=== PATIENT | male | born 1950 | race Caucasian/White ===

== ENCOUNTER 2024-12-25 12:10 | Outpatient (AMB) | payer MEDICARE, MEDICAID, SELFPAY ==
--- OUTSIDE RECORDS SUMMARY | 2016-02-12 10:09 | XMS_ITS | Continuity of Care Document ---
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 Name Role Phone Matthew KRAFT Constantin Unavailable Unavailable Allergies, Adverse Reactions, Alerts Substance Reaction Status Criticality No Known Allergies Active No Inform ation Medications Medication Instructions Dosage Effective Dates (start - stop) Status Comments metformin ER 500 mg tablet,extended release 24 hr take 2 tablet by oral route every day with the evening meal 1000 MG - Active timolol maleate 0.25 % eye drops instill 1 drop by ophthalmic route into each eye BID;strength needing clarification - Active gabapentin 300 mg capsule take 1 capsule by oral route 3 times every day 300 MG - Active glyburide 5 mg tablet take 1 Tablet by o ral route 2 times every day give with meals - Active simvastatin 20 mg tablet take 1 tablet by oral route every day in the evening 20 MG - Active Proscar 5 mg tablet take 1 tablet by ora l route every day 5 MG - Active Januvia 100 mg tablet take 1 tablet by o ral route every day 100 MG - Active fenofibrate micronized 134 mg capsule severe risk with simvastatin. Will need to discuss with pt. Takes 1 capsule by oral route every day with food - Active lisinopril 5 mg tablet take 1 tablet by oral route every day 5 MG - Active Advance Directives Directive Yes / No Effective Date File Name No Information Encounters Encounter Description Practice Location Reason(s) For Visit Diagnoses Date Provider [facility], [address] [address], [place], [place], [id number], [place] tel:[phone] [place] [address] No Information Matthew Killian. [address] [place] [address], [place], [place], [id number], [place]. tel:[phone] [facility], [address] [place] [address], [place], [place], [id number], [place] tel:[phone] [place] [facility] for general adult medical exam w/o abnormal findingsEncounter for screening for respiratory tuberculosisType 2 diabetes mellitus without complications No Information Family History Family Member Type Diagnosis Age At Onset No Information Payers Payer name Insurance type Covered green party ID Authoriza tion(s) No Information Social History Type Description Quantity Date Captured Comments Sex Male Smoking Status No Information Chief Complaint And Reason For Visit No Information History Of Present Illness Encounter Date Complaint History Of Prese nt Illness No Information Instructions Date Instruction Additional Infor mation No Information Assessments Type Assessment Date No Information
[2024-12-25 13:10] VITALS: BMI 21.5
--- NOTE | 2024-12-25 13:10 | MHC.AMNUTRGE ---
VS Expanded 12/25/24 13:10 01/01/25 19:17 Height 5 ft 8 in 5 ft 8 in Weight 141 lb 5.061 oz 141 lb BMI 21.5 21.4 Intake Visit Reasons: fatty liver Nutrition Presentation Details: Pt presents for MNT for T2DM Pt presents with son during this appt Pt has Alzheimer, son reports Pt forgets to eat during the day and the largest meal is typically in the afternoon thus Pt is losing weight. Son reports , P is not monitoring BG, Pt refuses. Pt is Lantus 16 units/day Today will discuss nutrient dense foods with protein : cold/finger foods Pt may be able to get during the day to prevent further weight loss PXY-Yhzafjg-Cz.Jeor Equation Height: 5 ft 8 in Weight: 141 lb Resting Metabolic Rate: 1354.43 Calculated Activity Level: Mild Activity Calories Needed to Maintain Weight: 1862.34 Diagnosis Nutrition problem #1: food nutri know defi As related to (etiology) #1: diagnosis As evidenced by (sign/symptom) #1: knowledge deficit of diet [facility] Medical History (Updated 01/01/25 @ 19:[address], LDN) Alzheimer's dementia Assessment & Plan Assessment & Plan (1) T2DM (type 2 diabetes mellitus): Comment: Pt with alzheimers Code(s): E11.9 - Type 2 diabetes mellitus without complications Category: Medical Plan: current wt: 64 kg (12/27 ) est kcal needs as per MSJ: 1064-3180 est protein needs as per 1 -1.2g/kg BW: 60-72 est fluid needs as per 30 ml/kg BW: 2000 Recommended fiber > 12 g /day and gradually increase up to 25-28 g /day or as tolerated Nutrition topics discussed : Reviewed (R), Pt verbalized understanding (V) , not applicable (N/A) R, : Healthy Plate Method Concept: R, : Carbohydrates: food sources of carbohydrates, relationship of carbohydrates to blood glucose, fatty liver GI health. Recommended total amount of carbohydrates per meals and snack. Differences between simple carbohydrates and complex carbohydrates R, : Lean protein foods including vegan , vegetarian sources of protein. Benefits of protein (including but not limited to healing, nutritional value , benefits in weight loss, glucose control R, V, N/A: Fats : Source of fats, benefits of fats. Difference between saturated and unsaturated fats. Saturated fats and its contribution to inflammation R, V, N/A: Fiber: food sources and role of fiber in the diet (including but not limited to its role as a prebiotic, benefits in constipation, role in IBS , role in glucose control and cholesterol level) R, V, N/A: Hydration: role of hydration and prevention of dehydration or over hydration. Foods and water content. R, V, N/A: Vitamins and Minerals in foods and supplements R, V, N/A: Interpreting food labels, including serving size, macronutrients, vitamins, minerals, allergens, ingredient list , % daily value Patient Instructions: See options for sandwiches (whole grain bread and variety of protein salad :tuna/egg/chicken) Have fairlife milk with the meals or as snack Coding Level of Care Code Nutr Indiv Intake (04547) Diagnoses T2DM (type 2 diabetes mellitus) E11.9 Time Spent (min) 30
--- OUTSIDE RECORDS SUMMARY | 2024-12-25 15:05 | XMS_ITS | Clinical Summary ---
Author Organization [facility] Address [address] [place] [address] Phone Care Team Providers Care Dental Laboratory Technician Name Role Phone Keeley Gutiérrez MD Primary Care Provider [phone] Allergies No known active allergies Medications flash glucose sensor (FreeStyle Félix 2 Sensor) kitIndications :Type 2 diabetes mellitus with diabetic chronic kidney disease ([facility] V24, [facility] V28) Box = Kit = EA, change sensor every 14 days 6 each 1 07/13/19 25 Active flash glucose scanning reader (FreeStyle Félix 2 [place]) miscIndication s:Type 2 diabetes mellitus with diabetic chronic kidney disease ([facility] V24, [facility] V28) Check sugars regularly 1 each 07/13/19 25 Active pen needle, diabetic (Lite Touch Insulin Pen [place]) 31 gauge x 5/16 needleIndicati ons:Type 2 diabetes mellitus with diabetic chronic kidney disease ([facility] V24, [facility] V28) USE 1TIMES DAILY TO INJECT INSULIN 200 each 1 07/13/19 25 Active insulin glargine (Lantus Solostar U-100 Insulin) 100 unit/mL (3 mL) injection penIndications :Type 2 diabetes mellitus with diabetic chronic kidney disease ([facility] V24, [facility] V28) INJECT 15 UNITS INTO THE SKIN DAILY. 15 mL 1 11/02/19 25 Active tamsulosin (FLOMAX) 0.4 mg 24 hr capsule Take 1 capsule (0.4 mg total) by mouth 1 (one) time each day. Capsules should be taken 30 minutes following the same meal each day. 90 each 11/22/19 25 025 Active levothyroxine (SYNTHROID, LEVOTHROID) 100 mcg tablet TOME 1 TABLETA POR VIA ORAL [place] 90 tablet 1 12/07/19 25 Active levothyroxine (SYNTHROID, LEVOTHROID) 100 mcg tablet TAKE 1 TABLET BY MOUTH 1 TIME EACH DAY. 90 tablet 09/14/19 25 025 Discontinued lactulose (CHRONULAC) solution Take 15 mL (10 g total) by mouth 2 (two) times a day. 900 mL 11/02/19 25 025 dulaglutide (TRULICITY) 0.75 mg/0.5 mL pen injector injectionIndic ations:Type 2 diabetes mellitus with diabetic nephropathy, with long-term current use of insulin ([facility] V24, [facility] V28) Inject 0.5 mL (0.75 mg total) under the skin every 7 (seven) days. 2 mL 11/02/19 25 025 empagliflozin (Jardiance) 10 mg tablet Take 1 tablet (10 mg total) by mouth 1 (one) time each day in the morning. 30 tablet 11/02/19 25 025 Active Problems Problem Noted Date Diagnosed Date Pneumonia of both lower lobes due to infectious organism 11/01/2024 AMS (altered mental status) 10/31/2024 Alzheimer's dementia ([facility] V24, [facility] V28) 06/12/2024 Assessment & Plan (06/12/2024 8:43 AM EDT): Patient was referred to neurology however has not followed up, son reports that patient lost insurance for a while as result they were not able to schedule the appointment, I gave a printout of the referral with information for the office to contact to make an appointment with the patient. Patient and son verbalized understanding. I have also signed forms for patient to initiate adult foster care so he can get additional help at home with his ADLs. Type 2 diabetes mellitus wit h diabetic nephropathy ([facility] V24, [facility] V28) 01/20/2022 Assessment & Plan (06/12/2024 8:43 AM EDT): Patient taking empagliflozin 10 mg, not taking Trulicity or insulin as patient refuses insulin only able to give him medications which are oral pills. Check hemoglobin A1c and further adjustment based off blood work results. Orders: Hemoglobin A1c; Future Vitamin D deficiency 03/18/2021 CKD (chronic kidney disease) stage 3, GFR 30-59 ml/min ([facility] V24, [facility] V28) 04/22/2020 Diabetic retinopathy ([facility] V24, [facility] V28) 04/22/2020 Microalbuminuria 04/22/2020 Elevated liver enzymes 11/17/2018 Hypothyroidism 06/21/2018 Assessment & Plan (06/12/2024 8:43 AM EDT): Continue with levothyroxine at the current dose, recheck TSH Orders: Thyroid stimulating hormone with reflex to free t4 and free t3; Future DM (diabetes mellitus), type 2 with renal complications [place] [place], [facility] V28) 10/25/2017 HTN (hypertension), benign 07/11/2017 Overview (04/06/2024): Last Assessment & Plan: Blood pressure well controlled. Continue his ANN inhibitor at current dose Assessment & Plan (06/12/2024 8:43 AM EDT): Continue with lisinopril 10 mg. Orders: Comprehensive metabolic panel; Future CBC and differential; Future BPH (benign prostatic hyperplasia) 06/06/2014 Overview (04/06/2024): Nodular- Richard [place] Glaucoma 06/06/2014 Hyperlipidemia with target LDL less than 100 08/2014 Overview (04/06/2024): Mildly elevated liver enzymes. Being monitored closely. Assessment & Plan (06/12/2024 8:43 AM EDT): Continue with rosuvastatin 20 mg, recheck lipid panel. Orders: Lipid panel with reflex to direct LDL; Future Hypertriglyceridemia 06/06/2014 Overview (04/06/2024): Trigs as high as 1391 06/2019 Encounters Date Type Department Care Team Description 11/21/2024 9:00 AM EDT Office Visit Adult Medicine [address] [phone] Keeley Gutiérrez MD Hospital discharge follow-up (Primary Dx); HTN (hypertension), benign; Hyperlipidemia with target LDL less than 100; Acquired hypothyroidism; Type 2 diabetes mellitus with diabetic nephropathy, with long-term current use of insulin ([facility] [place], [facility] V28); Stage 3a chronic kidney disease ([facility] [place], [facility] V28); Benign prostatic hyperplasia with post-void dribbling; Alzheimer's dementia, unspecified dementia severity, unspecified timing of dementia onset, unspecified whether behavioral, psychotic, or mood disturbance or anxiety ([facility] [place], [facility] V28) 11/16/2024 9:30 AM EDT Office Visit Endocrinology [address] [phone] Juliet Royal MD Type 2 diabetes mellitus with other specified complication, with long-term current use of insulin ([facility] [place], [facility] V28) (Primary Dx) 11/06/2024 Telephone Adult Medicine [address] [phone] Keeley Gutiérrez MD 11/05/2024 Telephone Adult [address] [phone] Daljit Benavides DIRECTOR OF BUSINESS CONTINUITY 10/31/2024 12:13 PM EDT - 11/01/2024 3:02 PM EDT Hospital Encounter [facility] [address] [place] [phone] Estevan Garza MD Sondhi, Vikram, MD Santoyo-Pache co, Omar D, MD Pneumonia of both lower lobes due to infectious organism (Primary Dx); Type 2 diabetes mellitus with diabetic chronic kidney disease ([facility] [place], [facility] V28); Type 2 diabetes mellitus with diabetic nephropathy, with long-term current use of insulin ([facility] V24, [facility] V28); Delirium; Hyperammonemia ([facility] V24) Discharge Disposition: Home-Health Care [facility] 10/30/[address] [phone] Juliet Royal MD from Last 3 Months Immunizations Name Administration Dates Next Due Influenza trivalent, 0.5mL ( Fluad) 65yo and older 01/28/2022,01/11/2020,01/29/2019,01/25,12/08/2016 Influenza trivalent, 0.5mL, preservative free (Fluarix; FluLaval; Fluzone) ages 6mo and older (Afluria) 3 years and older 01/06/2016,01/08/2015 Influenza, Unspecified 01/20/2021 Moderna SARS-CoV-2 COVID-19, mRNA, LNP-S, preservative free 05/28/2020,05/05/2020 Pfizer SARS-CoV-2 COVID-19, mRNA, LNP-S, preservative free 07/28/2021 Pneumococcal conjugate 13 va lent (Prevnar 13, PCV13) 2mo and older 05/19/2015 Pneumococcal polysaccharide 23 valent (Pneumovax 23) 2yo and older 10/25/2017 Surgical History Surgery Date Site/Laterality Comments TONSILLECTOMY PROCEDURE: HISTORICAL TONSILLECTOMY OTHER SURGICAL HISTORY PROCEDURE: HISTORICAL UNSPECIFIED SURGERY; COMMENT: prlems with urination as a child-repaired CATARACT EXTRACTION 2016, 2017 PROCEDURE: HISTORICAL CATARACT REMOVAL Medical History Medical History Date Comments Type 2 DM mild nonproliferat janice retinopathy, no macular edema, uncontr 06/06/2014 DX:Type 2 DM mi ld nonproliferative retinopathy, no macular edema, uncontr Hypertension DX:Hypertension Diabetic retinopathy ([facility] V24, [facility] V28) 04/22/2020 DX:Diabetic retinopathy ([facility] ) Microalbuminuria 04/22/2020 DX:Microalbumin uria CKD (chronic kidney disease) stage 3, GFR 30-59 ml/min ([facility] V24, [facility] V28) 04/22/2020 DX:CKD (chronic kidney disea se) stage 3, GFR 30-59 ml/min ([facility]) Family History Medical History Relation Name Comments Other: Other Father Other: Other Mother Relation Name Status Comments Father Mother Social History Tobacco Use Types Packs/Day Years Used Date Smoking Tobacco: Former Cigarettes Q uit: 04/04/2019 Smokeless Tobacco: Never Tobacco Cessation:Counseling Given: Not Answered Alcohol Use Standard Drinks/Week Comments Not Currently 0 (1 standard drink = 0.6 oz pur e alcohol) Interpersonal Safety Answer Date Record ed Physical Abuse 10/31/2024 Verbal Abuse 10/31/2024 Sex and Gender Information Value Date Recorded Sex Assigned at Not on file Legal Sex Male 5:31 AM EST Gender Identity Not on file Sexual Orientation Not on file Obstetrics History Last Filed Vital Signs Vital Sign Reading Time Taken Comments Blood Pressure 104/58 11/21/2024 9:23 AM EDT Pulse 72 11/21/2024 9:23 AM EDT Temperature 36.4 C (97.5 F) 11/21/2024 9:23 AM EDT Respiratory Rate 14 11/21/2024 9:23 AM EDT Oxygen Saturation 97% 11/21/2024 9:23 AM EDT Inhaled Oxygen Concentration - - Weight 59 kg (130 lb) 11/21/2024 9:23 AM EDT Height 172.7 cm (5' 8 ) 11/21/2024 9:23 AM EDT Body Mass Index 19.77 11/21/2024 9:23 AM EDT Plan of Treatment Upcoming Encounters Date Type Department Care Team (Late st Contact Info) Description 03/15/2025 2:30 PM EST Office Visit Adult Medicine [address] [phone] Keeley Gutiérrez MD [address] [place] [address] Health Maintenance Due Date Last Done Comments Diabetes: Annual Foot Exam 09/12/1960 Diabetes: Annual Retina Eye Exam 09/12/1960 DTaP,Tdap,and Td Vaccines (1 - Tdap) 1968 Zoster Vaccines (1 of 2) 1968 Colorectal Cancer Screening: Colonoscopy 03/13/2022 Social Influencers of Health Screening 03/13/2022 Diabetes: Annual Urine Albumin-Creatinine Ratio (uACR) 12/31/2023 12/30/2022 RSV Immunization Adult Patients (1 - 1-dose 75+ series) 2024 COVID-19 Vaccine ( season) 2024 07/28/2021, 01/20/2021, 05/28/2020, Additional history exists Influenza Vaccine (#1) 2024 , 01/20/2021, 01/20/2021, Additional history exists Diabetes: Blood Sugar Control Test (HGBA1C) 05/03/2025 10/31/2024, 06/12/2024, 05/24/2023 Medicare Annual Wellness Visit 06/12/2025 06/12/2024 Diabetes: Annual GFR (Glomerular Filtration Rate) 11/01/2025 11/01/2024, 10/31/2024, 06/12/2024, Additional history exists Falls Risk Assessment 11/01/2025 11/01/2024 , 06/12/2024, 06/12/2024 Hypertension/CHF/CAD Annual BMP Blood Test 11/01/2025 11/01/2024, 10/31/2024, 06/12/2024, Additional history exists Cholesterol Screening (Lipid Panel) 11/01/2029 11/01/2024, 06/12/2024, 05/24/2023 Abdominal Aortic Aneurysm (AAA) Screen Completed 05/27/2015 Hepatitis C Screening Completed 08/30/2015 Pneumococcal Vaccine: 50+ Years Completed 10/25/2017, 05/19/2015 Depression Screening Completed 06/12/2024 HIB Vaccines Aged Out No longer eligi ble based on patient's age to complete this topic HPV Vaccines Aged Out No longer eligi ble based on patient's age to complete this topic Hepatitis A Vaccines Aged Out No long er eligible based on patient's age to complete this topic Hepatitis B Vaccines Aged Out No long er eligible based on patient's age to complete this topic IPV Vaccines Aged Out No longer eligi ble based on patient's age to complete this topic MMR Vaccines Aged Out No longer eligi ble based on patient's age to complete this topic Meningococcal ACWY Vaccine Aged Out N o longer eligible based on patient's age to complete this topic Meningococcal B Vaccine Aged Out No l onger eligible based on patient's age to complete this topic RSV Immunization Patients Under 20 months Aged Out No longer eligible based on patient's age to complete this topic Varicella Vaccines Aged Out No longer eligible based on patient's age to complete this topic Procedures Procedure Name Priority Date/Time Associated Diagnosis Comments POCT GLUCOSE BLOOD Routine 11/01/2024 11 :09 AM EDT POCT GLUCOSE BLOOD Routine 11/01/2024 7: 52 AM EDT LIPID PANEL WITH REFLEX TO DIRECT LDL Routine 11/01/2024 5:45 AM EDT COMPLETE BLOOD COUNT Routine 11/01/2024 5:45 AM EDT BASIC METABOLIC PANEL Routine 11/01/2024 5:45 AM EDT ECG ANNOTATED 11/01/2024 POCT GLUCOSE BLOOD Routine 10/31/2024 8: 19 PM EDT RESPIRATORY VIRUS PANEL MOLECULAR STUDY STAT 10/31/2024 5:47 PM EDT POCT GLUCOSE BLOOD Routine 10/31/2024 5: 44 PM EDT POCT GLUCOSE BLOOD Routine 10/31/2024 3: [address] HEAD WO CONTRAST STAT 10/31/2024 2 :30 PM EDT OTOOLE URINE CULTURE TUBE STAT 11/01/19 2:24 PM EDT URINALYSIS WITH REFLEX MICROSCOPIC AND CULTURE STAT 10/31/2024 2:24 PM EDT URINALYSIS WITH REFLEX MICROSCOPIC AND CULTURE STAT 10/31/2024 2:24 PM EDT XR CHEST 2 VIEWS STAT 10/31/2024 1:41 PM EDT RHYTHM ECG, REPORT Routine 10/31/2024 1: 01 PM EDT ECG 12-LEAD STAT 10/31/2024 12:54 PM EDT HEMOGLOBIN A1C Add-On 10/31/2024 12:34 PM EDT CBC WITH AUTO DIFFERENTIAL STAT 10/31/2024 12:34 PM EDT BETA HYDROXYBUTYRATE STAT 10/31/2024 12:34 PM EDT OSMOLALITY STAT 10/31/2024 12:34 PM EDT MAGNESIUM STAT 10/31/2024 12:34 PM EDT AMMONIA STAT 10/31/2024 12:34 PM EDT COMPREHENSIVE METABOLIC PANEL STAT 10/31/2024 12:34 PM EDT CBC AND DIFFERENTIAL STAT 10/31/2024 12:34 PM EDT VENOUS BLOOD GAS STAT 10/31/2024 12:2 0 PM EDT HM URINE ALBUMIN CREATININE RATIO Routine 12/30/2022 HM HEPATITIS C SCREENING Routine 08/30/2015 ABDOMINAL AORTIC ANEURYSM SCRREN Routine 05/27/2015 from Last 3 Months or Most Recently Relevant to Health Maintenance Results * (ABNORMAL) POCT Glucose, blood (11/01/2024 11:09 AM EDT) Only the most recent of5 resultswithin the time period is included. [facility] Glucose POCT 329(H) 70 - 100 mg/dL 11/01/2024 11:12 AM EDT [facility] Blood Capillary blood specimen / Unknown 11/01/2024 11:09 AM EDT 11/01/2024 11:13 AM EDT Fabiano Ellis MD LAB POINT OF C ARE TEST DOCKED DEVICE UNSOLICITED RESULTS Final Result Performing Organization Address [facility]/ZIP Co de Phone Number [facility] [address] [place] [address], [place] [phone] * (ABNORMAL) Lipid panel with reflex to direct LDL (11/01/2024 5:45 AM EDT) Cholesterol 181 0 - 200 mg/dL LAB CHEMISTRY METHOD 11/01/2024 7:31 AM EDT [facility] Triglycerides 165(H) 0 - 150 mg/dL LAB CHEMISTRY METHOD 11/01/2024 7:31 AM EDT [facility] HDL 35(L) >=40 mg/dL LAB CHEMISTRY METHOD 11/01/2024 7:31 AM EDT [facility] LDL Calculated 113(H) 0 - 100 mg/dL LAB CHEMISTRY METHOD 11/01/2024 7:31 AM EDT [facility] VLDL Cholesterol Tuan 33 mg/dL LAB CHEMISTRY METHOD 11/01/2024 7:31 AM T [facility] Non HDL Chol. (LDL+VLDL) 146(H) <145 mg/dL LAB CHEMISTRY METHOD 11/01/2024 7:31 AM EDT [facility] Chol/HDL Ratio 5.2(H) 0.0 - 4.4 LAB CHEMISTRY METHOD 11/01/2024 7:31 AM EDT [facility] Blood Venous blood specimen / Unknown Venipuncture / Unknown 11/01/2024 5:45 AM EDT 11/01/2024 6:18 AM EDT us Jannet Martin NP LAB BLOOD ORDERABLES Fin al Result [facility] [address] [place] [address], * (ABNORMAL) Complete blood count (11/01/2024 5:45 AM EDT) [facility] Signature WBC 5.3 4.8 - 10.8 K/mcL LAB HEMETOLOGY METHOD 11/01/2024 6:36 AM EDT [facility] RBC 3.80(L) 4.50 - 5.50 M/mcL LAB HEMETOLOGY METHOD 11/01/2024 6:36 AM EDT [facility] Hemoglobin 10.5(L) 13.5 - 17.5 g/dL LAB HEMETOLOGY METHOD 11/01/2024 6:36 AM EDT [facility] Hematocrit 31.4(L) 42.0 - 54.0 % LAB HEMETOLOGY METHOD 11/01/2024 6:36 AM EDT [facility] MCV 82.8 79.0 - 98.0 FL LAB HEMETOLOGY METHOD 11/01/2024 6:36 AM EDT [facility] MCH 27.7 27.0 - 32.0 pcg LAB HEMETOLOGY METHOD 11/01/2024 6:36 AM EDT [facility] MCHC 33.4 32.0 - 37.0 g/dL LAB HEMETOLOGY METHOD 11/01/2024 6:36 AM EDT [facility] RDW 13.1 11.0 - 15.0 % LAB HEMETOLOGY METHOD 11/01/2024 6:36 AM EDT [facility] Platelets 162 130 - 400 K/mcL LAB HEMETOLOGY METHOD 11/01/2024 6:36 AM EDT [facility] MPV 11.7(H) 7.0 - 11.0 FL LAB HEMETOLOGY METHOD 11/01/2024 6:36 AM EDT [facility] NRBC 0.0 <1.0 % LAB HEMETOLOGY METHOD 11/01/2024 6:36 AM T [facility] NRBC Absolute 0.00 <0.10 K/mcL LAB HEMETOLOGY METHOD 11/01/2024 6:36 AM [facility] Blood Venous blood specimen / Unknown Venipuncture / Unknown 11/01/2024 5:45 AM EDT 11/01/2024 6:19 AM EDT us Pierre Mendenhall MD LAB BLOOD ORDERABLES Final Resu lt [facility] [address] [place] [address], * (ABNORMAL) Basic metabolic panel (11/01/2024 5:45 AM EDT) Sodium 142 133 - 145 mmol/L LAB CHEMISTRY METHOD 11/01/2024 7:31 AM [facility] Potassium 4.2 3.5 - 5.5 mmol/L LAB CHEMISTRY METHOD 11/01/2024 7:31 AM [facility] Chloride 110 96 - 110 mmol/L LAB CHEMISTRY METHOD 11/01/2024 7:31 AM [facility] CO2 29 21 - 32 mmol/L LAB CHEMISTRY METHOD 11/01/2024 7:31 AM [facility] Anion Gap 3 3 - 11 LAB CHEMISTRY METHOD 11/01/2024 7:31 AM [facility] Glucose 258(H) 70 - 100 mg/dL LAB CHEMISTRY METHOD 11/01/2024 7:31 AM [facility] BUN 27(H) 5 - 25 mg/dL LAB CHEMISTRY METHOD 11/01/2024 7:31 AM [facility] Creatinine 0.98 0.70 - 1.30 mg/dL LAB CHEMISTRY METHOD 11/01/2024 7:31 AM EDT [facility] eGFR 80 >=60 mL/min/1. 73m2 LAB CHEMISTRY METHOD 11/01/2024 7:31 AM EDT [facility] Comment:Calculation based on the Chronic Kidney Disease Epidemiology Collaboration (CKD-EPI) equation refit without adjustment for race. BUN/Creatinine Ratio 27.6 LAB CHEMISTRY METHOD 11/01/2024 7:31 AM EDT [facility] Calcium 9.0 8.5 - 10.5 mg/dL LAB CHEMISTRY METHOD 11/01/2024 7:31 AM EDT [facility] Blood Venous blood specimen / Unknown Venipuncture / Unknown 11/01/2024 5:45 AM EDT 11/01/2024 6:18 AM EDT Pierre Mendenhall MD LAB BLOOD ORDERABLES Final Resu lt [facility] [address] [place] [address], [place] [phone] * ECG-Annotated (11/01/2024) us Provider Onbase ECG ORDERABLES Final Result * Respiratory virus panel molecular study (10/31/2024 5:47 PM EDT) Adenovirus Detection by PCR Not Detected Not Detected LAB MICROBIOLOGY METHOD 10/31/2024 7:25 PM EDT [facility] Influenza A PCR Not Detected Not Detected LAB MICROBIOLOGY METHOD 10/31/2024 7:25 PM EDT [facility] Influenza B PCR Not Detected Not Detected LAB MICROBIOLOGY METHOD 10/31/2024 7:25 PM EDT [facility] Coronavirus 229E Not Detected Not Detected LAB MICROBIOLOGY METHOD 10/31/2024 7:25 PM EDT [facility] Coronavirus HKU1 Not Detected Not Detected LAB MICROBIOLOGY METHOD 10/31/2024 7:25 PM EDT [facility] Coronavirus OC43 Not Detected Not Detected LAB MICROBIOLOGY METHOD 10/31/2024 7:25 PM EDT [facility] Coronavirus NL63 Not Detected Not Detected LAB MICROBIOLOGY METHOD 10/31/2024 7:25 PM EDT [facility] Parainfluenza Virus 1 Not Detected Not Detected LAB MICROBIOLOGY METHOD 10/31/2024 7:25 PM EDT [facility] Parainfluenza Virus 2 Not Detected Not Detected LAB MICROBIOLOGY METHOD 10/31/2024 7:25 PM EDT [facility] Parainfluenza Virus 3 Not Detected Not Detected LAB MICROBIOLOGY METHOD 10/31/2024 7:25 PM EDT [facility] Parainfluenza Virus 4 Not Detected Not Detected LAB MICROBIOLOGY METHOD 10/31/2024 7:25 PM EDT [facility] RSV PCR Not Detected Not Detected LAB MICROBIOLOGY METHOD 10/31/2024 7:25 PM EDT [facility] Human Metapneumovirus A and B Not Detected Not Detected LAB MICROBIOLOGY METHOD 10/31/2024 7:25 PM EDT [facility] Rhinovirus/Entero virus Not Detected Not Detected LAB MICROBIOLOGY METHOD 10/31/2024 7:25 PM EDT [facility] Bordetella pertussis Not Detected Not Detected LAB MICROBIOLOGY METHOD 10/31/2024 7:25 PM EDT [facility] Bordetella parapertussis Not Detected Not Detected LAB MICROBIOLOGY METHOD 10/31/2024 7:25 PM EDT [facility] Mycoplasma pneumo by PCR Not Detected Not Detected LAB MICROBIOLOGY METHOD 10/31/2024 7:25 PM EDT [facility] Chlamydia pneumoniae Not Detected Not Detected LAB MICROBIOLOGY METHOD 10/31/2024 7:25 PM EDT [facility] SARS COV-2 Not Detected Not Detected LAB MICROBIOLOGY METHOD 10/31/2024 7:25 PM EDT [facility] Swab Both anterior nares / Unknown Non-blood Collection / Unknown 10/31/2024 5:47 PM EDT 10/31/2024 6:17 PM EDT Narrative [facility] - 10/31/2024 7:25 PM EDT Testing was performed using the [employer] Respiratory Pathogen PCR Assay. All results must be correlated with the clinical findings. Results should not be used as the sole basis for diagnosis. False Negative results may occur from the presence of sequence variants in the region targeted by the assay or the presence of inhibitors. Results may be affected by concurrent antiviral/antimicrobial therapy or levels of organisms that are below the limit of detection. us Jannet Martin NP LAB MICROBIOLOGY - GENER AL ORDERABLES Final Result [facility] [address] [place] [address], * CT Head wo Contrast (10/31/2024 2:30 PM EDT) Anatomical Region Laterality Modality Head and Neck Computed Tomogra phy 10/31/2024 2:48 PM EDT Impressions 10/31/2024 2:49 PM EDT NO ACUTE INTRACRANIAL ABNORMALITY. -------- FINAL REPORT -------- Dictated By: Aung James Dictated Date: 10/31/2024 14:48 ET Assigned Physician: Aung James Reviewed and Electronically Signed By: Aung James Signed Date: 10/31/2024 14:49 ET Workstation ID: [id number] Transcribed By: Self Edit Transcribed Date: 10/31/2024 14:48 ET Narrative 10/31/2024 2:49 PM EDT PROCEDURE: HEAD CT INDICATION: Delirium TECHNIQUE: CT of the head without intravenous contrast. Multiplanar reformats. The examination was performed utilizing dose reduction techniques. Total DLP 809 COMPARISON: 04/27/2024 FINDINGS: No acute territorial infarct, mass effect, or intracranial hemorrhage. Moderate scattered periventricular and subcortical white matter hypodensities are most likely related to chronic small vessel ischemic change. CSF spaces commensurate for degree of volume loss. No hydrocephalus. Visualized paranasal sinuses are clear. Mastoid air cells are clear. No calvarial fracture. Bilateral lens implants. Procedure Note Aung James MD - 10/31/2024 PROCEDURE: HEAD CT INDICATION: Delirium TECHNIQUE: CT of the head without intravenous contrast. Multiplanarreformats. The examination was performed utilizing dose reductiontechniques. Total DLP 809 COMPARISON: 04/27/2024 FINDINGS: No acute territorial infarct, mass effect, or intracranial hemorrhage. Moderate scattered periventricular and subcortical white matterhypodensities are most likely related to chronic small vessel ischemicchange. CSF spaces commensurate for degree of volume loss. No hydrocephalus. Visualized paranasal sinuses are clear. Mastoid air cells are clear. No calvarial fracture. Bilateral lens implants. IMPRESSION: NO ACUTE INTRACRANIAL ABNORMALITY. -------- FINAL REPORT -------- Dictated By: Aung James Dictated Date: 10/31/2024 14:48 ET Assigned Physician: Aung James Reviewed and Electronically Signed By: Aung James Signed Date: 10/31/2024 14:49 ET Workstation ID: [id number] Transcribed By: Self Edit Transcribed Date: 10/31/2024 14:48 ET Estevan Garza MD [facility] [place] PROCEDURES Final Result * (ABNORMAL) Urinalysis with reflex microscopic and culture (10/31/2024 2:24 PM EDT) Specific [place] Urine 1.026 1.003 - 1.030 LAB URINALYSIS - AUTOMATED METHOD 10/31/2024 2:38 PM EDT [facility] pH, Urine 6.0 5.0 - 8.0 pH LAB URINALYSIS - AUTOMATED METHOD 10/31/2024 2:38 PM EDT [facility] Leukocytes, Urine Negative Negative LAB URINALYSIS - AUTOMATED METHOD 10/31/2024 2:38 PM EDT [facility] Nitrite, Urine Negative Negative LAB URINALYSIS - AUTOMATED METHOD 10/31/2024 2:38 PM [facility] Protein, Urine 100(A) <=Trace mg/dL LAB URINALYSIS - AUTOMATED METHOD 10/31/2024 2:38 PM [facility] Glucose, Urine >=1000(A) Negative mg/dL LAB URINALYSIS - AUTOMATED METHOD 10/31/2024 2:38 PM [facility] Ketones, Urine Negative Negative mg/dL LAB URINALYSIS - AUTOMATED METHOD 10/31/2024 2:38 PM [facility] Urobilinogen , Urine 1.0 0.2 - 1.0 mg/dL LAB URINALYSIS - AUTOMATED METHOD 10/31/2024 2:38 PM [facility] Bilirubin, Urine Negative Negative LAB URINALYSIS - AUTOMATED METHOD 10/31/2024 2:38 PM [facility] Blood, Urine Negative Negative LAB URINALYSIS - AUTOMATED METHOD 10/31/2024 2:38 PM [facility] RBC, Urine 1.1 0 - 4 /HPF LAB URINALYSIS - AUTOMATED METHOD 10/31/2024 2:38 PM [facility] WBC, Urine 0.4 0 - 4 /HPF LAB URINALYSIS - AUTOMATED METHOD 10/31/2024 2:38 PM [facility] Squamous Epithelial, Urine 5 0 - 60 /LPF LAB URINALYSIS - AUTOMATED METHOD 10/31/2024 2:38 PM [facility] Bacteria, Urine Negative Negative /HPF LAB URINALYSIS - AUTOMATED METHOD 10/31/2024 2:38 PM [facility] Hyaline Casts, Urine 0.0 0 - 3 /LPF LAB URINALYSIS - AUTOMATED METHOD 10/31/2024 2:38 PM [facility] Urine Urine specimen obtained by clean catch procedure / Unknown Non-blood Collection / Unknown 10/31/2024 2:24 PM EDT 10/31/2024 2:31 PM EDT us Estevan Garza MD LAB URINE ORDERABLES Final Res ult Performing Organization Address [facility] Co de Phone Number [facility] [address] [place] [address], [place] [phone] * [place] urine culture tube (10/31/2024 2:24 PM EDT) Extra Tube Hold for add-ons. 10/31/2024 4:01 PM EDT [facility] Comment:Auto resulted. Urine Urine specimen obtained by clean catch procedure / Unknown Non-blood Collection / Unknown 10/31/2024 2:24 PM EDT 10/31/2024 2:31 PM EDT Estevan Garza MD LAB URINE ORDERABLES Final Res ult Performing Organization Address [facility] de Phone Number [facility] [address] [place] [address], [place] [phone] * XR Chest 2 Views (10/31/2024 1:41 PM EDT) Anatomical Region Laterality Modality Body Radiographic Michelle ging 10/31/2024 2:24 PM EDT Impressions 10/31/2024 2:25 PM EDT FINDINGS/IMPRESSION: Diffuse coarse reticular markings throughout the lungs suggesting multifocal infectious/inflammatory process. Prominent vascular congestion could also have this appearance. Normal heart size. No significant pleural effusion. -------- FINAL REPORT -------- Dictated By: Aung James Dictated Date: 10/31/2024 14:24 ET Assigned Physician: Aung James Reviewed and Electronically Signed By: Aung James Signed Date: 10/31/2024 14:25 ET Workstation ID: [id number] Transcribed By: Self Edit Transcribed Date: 10/31/2024 14:24 ET Narrative 10/31/2024 2:25 PM EDT XR CHEST 2 VIEWS INDICATION: Delirium TECHNIQUE: XR CHEST 2 VIEWS COMPARISON: No priors available. Procedure Note Aung James MD - 10/31/2024 XR CHEST 2 VIEWS INDICATION: Delirium TECHNIQUE: XR CHEST 2 VIEWS COMPARISON: No priors available. IMPRESSION: FINDINGS/IMPRESSION: Diffuse coarse reticular markings throughout thelungs suggesting multifocal infectious/inflammatory process. Prominentvascular congestion could also have this appearance. Normal heart size.No significant pleural effusion. -------- FINAL REPORT -------- Dictated By: Aung James Dictated Date: 10/31/2024 14:24 ET Assigned Physician: Aung James Reviewed and Electronically Signed By: Aung James Signed Date: 10/31/2024 14:25 ET Workstation ID: [id number] Transcribed By: Self Edit Transcribed Date: 10/31/2024 14:24 ET us Estvean Garza MD IMG XR PROCEDURES Final Result * (ABNORMAL) RHYTHM ECG, REPORT (10/31/2024 1:01 PM EDT) Estevan Neri MD - 10/31/2024 1:01 PM EDT Estevan Garza MD 11/03/2024 12:48 AM ECG Rhythm Interpretation and Report Date/Time: 10/31/2024 1:01 PM Performed by: Estevan Garza MD Authorized by: Estevan Garza MD ECG interpreted by ED Physician in the absence of a hand baseball sewer: yes Previous ECG: Previous ECG: Compared to current Similarity: No change Comparison ECG info: April 2024 Interpretation: Interpretation: abnormal Details: Normal sinus rhythm with a ventricular rate of 66 bpm. Normal RI, QRS, QTc. Left axis deviation. No acute ischemic changes. us Estevan Garza MD ECG ORDERABLES Final Result * ECG 12 lead (10/31/2024 12:54 PM EDT) Ventricular Rate ECG 66 BPM GEMUSE Atrial Rate 66 BPM GEMUSE P-R Interval 192 ms GEMUSE QRS Duration 110 ms GEMUSE Q-T Interval 396 ms GEMUSE QTc 415 ms GEMUSE P Wave [place] 47 degrees GEMUSE R [place] -55 degrees GEMUSE T [place] 67 degrees GEMUSE ECG Interpretation Normal sinus rhythm Left anterior fascicular block When compared with ECG of 27-APR-2024 03:28, No significant change was found Confirmed by MISHA GARRIDO ([id number]) on 10/31/2024 10:18:01 PM GEMUSE 10/31/2024 12:5 4 PM EDT 10/31/2024 10:18 PM EDT Estevan Garza MD ECG ORDERABLES Final Result Performing Organization Address [facility]/ZIP Co de Phone Number GEMUSE * Beta hydroxybutyrate (10/31/2024 12:34 PM EDT) [facility] Beta-Hydroxybu tyrate 1.5 0.2 - 2.8 mg/dL LAB CHEMISTRY METHOD 10/31/2024 1:09 PM EDT [facility] Blood Venous blood specimen / Unknown Venipuncture / Unknown 10/31/2024 12:34 PM EDT 10/31/2024 12:35 PM EDT us Estevan Garza MD LAB BLOOD ORDERABLES Final Res ult Performing Organization Address City/[facility]/ZIP Co de Phone Number [facility] [address] [place] [address], [place] [phone] * (ABNORMAL) CBC auto differential (10/31/2024 12:34 PM EDT) [facility] WBC 5.0 4.8 - 10.8 K/mcL LAB HEMETOLOGY METHOD 10/31/2024 12:43 PM EDT [facility] RBC 4.20(L) 4.50 - 5.50 M/mcL LAB HEMETOLOGY METHOD 10/31/2024 12:43 PM EDT [facility] Hemoglobin 11.6(L) 13.5 - 17.5 g/dL LAB HEMETOLOGY METHOD 10/31/2024 12:43 PM EDT [facility] Hematocrit 33.8(L) 42.0 - 54.0 % LAB HEMETOLOGY METHOD 10/31/2024 12:43 PM EDT [facility] MCV 81.3 79.0 - 98.0 FL LAB [facility]OLOGY [facility]24 [facility] MCH 27.9 27.0 - 32.0 pcg LAB HEMETOLOGY METHOD 10/31[facility]2024 12:[facility] MCHC 34.3 32.0 - 37.0 g/dL LAB HEMETOLOGY METHOD 10/31/2024 12:43 PM [facility] RDW 13.2 11.0 - 15.0 % LAB HEMETOLOGY METHOD 10/31/2024 12:43 PM [facility] Platelets 183 130 - 400 K/mcL LAB HEMETOLOGY METHOD 10/31/2024 12:43 PM [facility] MPV 11.3(H) 7.0 - 11.0 FL LAB HEMETOLOGY METHOD 10/31/2024 12:[facility] NRBC 0.0 <1.0 % LAB HEMETOLOGY METHOD 10/31/2024 12:43 PM [facility] NRBC Absolute 0.00 <0.10 K/mcL LAB HEMETOLOGY METHOD 10/31/2024 12:43 PM [facility] Neutrophils Relative 60.6 % LAB HEMETOLOGY METHOD 10/31/2024 12:43 [facility] Lymphocytes Relative 27.4 % LAB HEMETOLOGY METHOD 10/31/2024 12:43 PM [facility] Monocytes Relative 9.4 % LAB HEMETOLOGY METHOD 10/31/2024 12:43 PM [facility] Eosinophils Relative 1.4 % LAB HEMETOLOGY METHOD 10/31/2024 12:43 PM EDT [facility] Basophils Relative 0.8 % LAB HEMETOLOGY METHOD 10/31/2024 12:43 PM EDT [facility] Immature Granulocytes Relative 0.4 % LAB HEMETOLOGY METHOD 10/31/2024 12:43 PM EDT [facility] Neutrophils Absolute 3.03 1.50 - 7.00 K/mcL LAB HEMETOLOGY METHOD 10/31/2024 12:43 PM EDT [facility] Lymphocytes Absolute 1.37 1.00 - 5.00 K/mcL LAB HEMETOLOGY METHOD 10/31/2024 12:43 PM EDT [facility] Monocytes Absolute 0.47 0.20 - 1.00 K/mcL LAB HEMETOLOGY METHOD 10/31/2024 12:43 PM EDT [facility] Eosinophils Absolute 0.07 0.00 - 0.50 K/mcL LAB HEMETOLOGY METHOD 10/31/2024 12:43 PM EDT [facility] Basophils Absolute 0.04 0.00 - 0.20 K/mcL LAB HEMETOLOGY METHOD 10/31/2024 12:43 PM EDT [facility] Immature Granulocytes Absolute 0.02 0.00 - 0.03 K/mcL LAB HEMETOLOGY METHOD 10/31/2024 12:43 PM EDT [facility] Blood Venous blood specimen / Unknown Venipuncture / Unknown 10/31/2024 12:34 PM EDT 10/31/2024 12:39 PM EDT us Estevan Garza MD LAB BLOOD ORDERABLES Final Res ult [facility] [address] [place] [address], * (ABNORMAL) Osmolality (10/31/2024 12:34 PM EDT) Osmolality Nelli 317(H) 280 - 300 mOsm/kg LAB CHEMISTRY METHOD 10/31/2024 1:40 PM EDT [facility] Blood Venous blood specimen / Unknown Venipuncture / Unknown 10/31/2024 12:34 PM EDT 10/31/2024 12:35 PM EDT Estevan Garza MD LAB BLOOD ORDERABLES Final Res ult Performing Organization Address City/[facility]/ZIP Co de Phone Number [facility] [address] [place] [address], [place] [phone] * Magnesium (10/31/2024 12:34 PM EDT) [facility] Magnesium 1.9 1.9 - 2.6 mg/dL LAB CHEMISTRY METHOD 10/31/2024 1:09 PM EDT [facility] Blood Venous blood specimen / Unknown Venipuncture / Unknown 10/31/2024 12:34 PM EDT 10/31/2024 12:35 PM EDT Estevan Garza MD LAB BLOOD ORDERABLES Final Res ult Performing Organization Address [facility] Co de Phone Number [facility] [address] [place] [address], [place] [phone] * (ABNORMAL) Hemoglobin A1c (10/31/2024 12:34 PM EDT) [facility] Hemoglobin A1C 11.4(H) <6.5 % LAB CHEMISTRY METHOD 10/31/2024 8:39 PM EDT [facility] Mean Bld Glu Estim. 280 mg/dL LAB CHEMISTRY METHOD 10/31/2024 8:39 PM EDT [facility] Blood Venous blood specimen / Unknown Venipuncture / Unknown 10/31/2024 12:34 PM EDT 10/31/2024 12:39 PM EDT us Jannet Martin NP LAB BLOOD ORDERABLES Fin al Result Performing Organization Address City/[facility]/ZIP Co de Phone Number [facility] [address] [place] [address], [place] [phone] * (ABNORMAL) Ammonia (10/31/2024 12:34 PM EDT) Ammonia 43(H) 11 - 35 mcmol/L LAB CHEMISTRY METHOD 10/31/2024 1:00 PM EDT [facility] Blood Venous blood specimen / Unknown Venipuncture / Unknown 10/31/2024 12:34 PM EDT 10/31/2024 12:39 PM EDT Estevan Garza MD LAB BLOOD ORDERABLES Final Res ult Performing Organization Address [facility]/ZIP Co de Phone Number [facility] [address] [place] [address], [place] [phone] * (ABNORMAL) Comprehensive metabolic panel (10/31/2024 12:34 PM EDT) Pathologist [facility] Sodium 137 133 - 145 mmol/L LAB CHEMISTRY METHOD 10/31/2024 1:30 PM EDT [facility] Potassium 4.1 3.5 - 5.5 mmol/L LAB CHEMISTRY METHOD 10/31/2024 1:30 PM EDT [facility] Chloride 106 96 - 110 mmol/L LAB CHEMISTRY METHOD 10/31/2024 1:30 PM EDT [facility] CO2 26 21 - 32 mmol/L LAB CHEMISTRY METHOD 10/31/2024 1:30 PM EDT [facility] Anion Gap 5 3 - 11 LAB CHEMISTRY METHOD 10/31/2024 1:30 PM EDT [facility] Glucose 429(HH) 70 - 100 mg/dL LAB CHEMISTRY METHOD 10/31/2024 1:30 PM EDT [facility] BUN 35(H) 5 - 25 mg/dL LAB CHEMISTRY METHOD 10/31/2024 1:30 PM [facility] Creatinine 1.23 0.70 - 1.30 mg/dL LAB CHEMISTRY METHOD 10/31/2024 1:30 PM [facility] eGFR 61 >=60 mL/min/1. 73m2 LAB CHEMISTRY METHOD 10/31/2024 1:30 PM [facility] Comment:Calculation based on the Chronic Kidney Disease Epidemiology Collaboration (CKD-EPI) equation refit without adjustment for race. BUN/Creatinine Ratio 28.5 LAB CHEMISTRY METHOD 10/31/2024 1:30 PM [facility] Calcium 8.8 8.5 - 10.5 mg/dL LAB CHEMISTRY METHOD 10/31/2024 1:30 PM [facility] AST (SGOT) 5(L) 10 - 42 unit/L LAB CHEMISTRY METHOD 10/31/2024 1:30 PM [facility] ALT (SGPT) 15 10 - 60 unit/L LAB CHEMISTRY METHOD 10/31/2024 1:30 PM [facility] Alkaline Phosphatase 67 42 - 121 unit/L LAB CHEMISTRY METHOD 10/31/2024 1:30 PM [facility] Total Protein 5.8(L) 6.0 - 8.0 g/dL LAB CHEMISTRY METHOD 10/31/2024 1:30 PM [facility] Albumin 3.2 3.2 - 5.0 g/dL LAB CHEMISTRY METHOD 10/31/2024 1:30 PM [facility] Total Bilirubin 0.5 0.0 - 1.4 mg/dL LAB CHEMISTRY METHOD 10/31/2024 1:30 PM [facility] Blood Venous blood specimen / Unknown Venipuncture / Unknown 10/31/2024 12:34 PM EDT 10/31/2024 12:35 PM EDT Estevan Garza MD LAB BLOOD ORDERABLES Final Res ult [facility] [address] [place] [address], [place] [phone] * (ABNORMAL) Venous blood gas (10/31/2024 12:20 PM EDT) pH, Dustin 7.37 7.32 - 7.42 pH 10/31/2024 12:37 PM EDT [facility] pCO2, Dustin 43 41 - 51 mmHg 10/31/2024 12:37 PM EDT [facility] pO2, Dustin 46(H) 25 - 40 mmHg 10/31/2024 12:37 PM EDT [facility] HCO3, Venous 24.1 22.0 - 26.0 mmol/L 10/31/2024 12:37 PM EDT [facility] O2 Sat, Dustin 83.0 % 10/31/2024 12:37 PM EDT [facility] Base Excess, Dustin -0.5 -2.0 - 2.0 mmol/L 10/31/2024 12:37 PM EDT [facility] Blood Venous blood specimen / Unknown Venipuncture / Unknown 10/31/2024 12:20 PM EDT 10/31/2024 12:33 PM EDT Estevan Garza MD LAB BLOOD ORDERABLES Final Res ult [facility] [address] [place] [address], [place] [phone] * HM Urine Albumin Creatinine Ratio (12/30/2022) Urine Albumin Creatinine Ratio abstracted Historical Provider HEALTH MAINTENANCE Final Result * Hepatitis C Screening (08/30/2015) Hepatitis C Screening abstracted Historical Provider HEALTH MAINTENANCE Final Result * Abdominal Aortic Aneurysm Screen (05/27/2015) Abdominal Aortic Aneurysm (AAA) Screening abstracted Anatomical Region Laterality Modality Other Historical Provider HEALTH MAINTENANCE Final Result from Last 3 Months or Most Recently Relevant to Health Maintenance Insurance MEDICAID - [place] MEDICARE Advance Directives * Full Code - Default (Latest Code Status on File) Date Activated Date Inactivated Comments 10/31/2024 2:49 PM 11/01/2024 5:02 PM This is orde r is used when code status has not been discussed with the patient, or code status is otherwise unknown/unconfirmed To update the patient's code status, place a code status order. Do not modify or discontinue any currently active code status orders. Care Teams Dental Laboratory Technician Relationship Specialty Start Date End Date Keeley Gutiérrez MD [address] [place] [address] PCP - General Internal Medicine 11/09/21
--- OUTSIDE RECORDS SUMMARY | 2024-12-25 15:06 | XMS_ITS | Clinical Summary ---
Author Organization [facility] Address [address] [place] [address] Phone Care Team Providers Care Chemical Handler Name Role Phone Michaela Gutiérrez Primary Care Provider [phone] Allergies No known active allergies Medications rosuvastatin (CRESTOR) 20 MG tablet rosuvastatin 20 mg tablet TOME LAURA TABLETA TODOS LOS D Active levothyroxine (SYNTHROID, LEVOTHROID) 112 MCG tablet levothyroxine 112 mcg tablet TOME LAURA TABLETA TODOS LOS D Active latanoprost (XALATAN) 0.005 % ophthalmic solution latanoprost 0.005 % eye drops Active insulin glargine (Lantus SoloStar) 100 UNIT/ML injection Lantus Solostar U-100 Insulin 100 unit/mL (3 mL) subcutaneous pen INJECT 40 UNITS INTO SKIN TWICE PER DAY Active insulin aspart (NovoLOG FLEXPEN) 100 UNIT/ML injection Novolog Flexpen U-100 Insulin aspart 100 unit/mL (3 mL) subcutaneous PLEASE SEE ATTACHED FOR DETAILED DIRECTIONS Active finasteride (PROSCAR) 5 MG tablet finasteride 5 mg tablet TOME LAURA TABLETA TODOS LOS D Active fenofibrate (TRICOR) 145 MG tablet fenofibrate nanocrystallized 145 mg tablet TAKE 145 MG BY MOUTH DAILY. Active dorzolamide-ti molol (COSOPT) 22.3-6.8 MG/ML ophthalmic solution dorzolamide 22.3 mg-timolol 6.8 mg/mL eye drops PONGA LAURA GOTA EN LOS DOS OJOS DOS VECES AL JAY Active Trulicity 1.5 MG/0.5ML solution pen-injector INJECT 1.5 MG INTO THE SKIN ONCE A WEEK. 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 Hyperlipidemia 01/20/2022 Anemia in chronic kidney disease 01/19/2022 Vitamin D deficiency 01/19/2022 Liver enzymes level above reference range 2021 Hyperlipidemia 01/18/2022 Hypertension 01/18/2022 Overview (08/03/2023): Follow Low NA diet Avoid NSAIDs/OTC Decongestant mediations Target BP 120/80 Assessment & Plan (08/03/2023 4:25 PM EDT): Blood pressure fairly controlled, 130/50 here today On single therapy Lisinopril 10 mg QD (if medication list is updated accurately) No medication changes made today Check Renal panel and urine alb/creat ratio Stage 3 chronic kidney disease 01/18/2022 Overview (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/2023): 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 Avoid Nephrotoxins On Jardiance and ACEi Optimize DM and HTN Assessment & Plan (08/03/2023 4:44 PM EDT): Checking Renal panel and urine alb/creat ratio Last documented Creat was 1.69, eGFR 43 as of 02/2022 w/ normal Lytes/Ca/PO4 Checking iPTH and Vitamin D25 - was low at 18 at that time Microalbuminuria 01/18/2022 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 Benign prostatic hyperplasia 06/06/2014 Overview (01/19/2022): Mark Flood Resolved Problems Problem Noted Date Diagnosed Date Resolved Date Hypothyroidism 01/19/2022 01/19/2022 Glaucoma 01/19/2022 01/19/2022 Type 2 diabetes mellitus without complication 01/19/2001/20/2022 Immunizations Immunization Administration Dates Next Due Influenza Split High Dose Pr eservative Free IM 01/28/2022,01/11/2020,01/29/2019,01/25,12/08/2016 Moderna SARS-COV-2 01/20/2021,05/28/2020, 021 Pfizer SARS-COV-2 07/28/2021 Pneumococcal Conjugate 13-Valent 05/19/2015 Pneumococcal Polysaccharide 10/25/2017 Family History Medical History Relation Comments Heart disease Brother Diabetes Father Relation Status Comments Brother Father Social History Tobacco Use Types Packs/Day Years Used Date Smoking Tobacco: Former Cigarettes Q uit: 2019 Smokeless Tobacco: Never Tobacco Cessation:Counseling Given: Not Answered Alcohol Use Standard Drinks/Week Comments Not Currently 0 (1 standard drink = 0.6 oz pur e alcohol) Sex and Gender Information Value Date Recorded Sex Assigned at Not on file Legal Sex Male 11:42 AM EDT Gender Identity Not on file Sexual Orientation Not on file Last Filed Vital Signs Vital Sign Reading Time Taken Comments Blood Pressure 132/50 08/03/2023 3:50 PM EDT Pulse 68 08/03/2023 3:50 PM EDT Temperature - - Respiratory Rate - - Oxygen Saturation 96% 05/25/2022 2:26 PM EST Inhaled Oxygen Concentration - - Weight 68.9 kg (151 lb 12.8 oz) 08/03/2023 3:50 PM EDT Height - - Body Mass Index - - Plan of Treatment Health Maintenance Due Date Last Done Comments Colorectal Cancer Screening: Annual FOBT 1998 Colorectal Cancer Screening: Colonoscopy 1998 Colorectal Cancer Screening: Sigmoidoscopy 1998 Diabetes: Ophthalmology Exam 01/18/2022 Diabetes: Pedal Pulse Checked 01/18/2022 Diabetes: Sensory Foot Exam 01/18/2022 Diabetes: Visual Foot Exam 01/18/2022 Diabetes: Hemoglobin A1C 11/18/2022 023, 02/17/2022, 10/22/2021, Additional history exists Influenza Vaccine (#1) 2024 , 01/11/2020, 01/29/2019, Additional history exists Pneumococcal Vaccine: 50+ Years Completed 10/25/2017, 05/19/2015 Hepatitis B Vaccine Aged Out No longe r eligible based on patient's age to complete this topic Procedures Procedure Name Priority Date/Time Associated Diagnosis Comments EXT RESULT ENTRY Routine 10/22/2021 from Last 3 Months or Most Recently Relevant to Health Maintenance Results * (ABNORMAL) EXT RESULT ENTRY (10/22/2021) Sodium 137 137 - 147 Potassium 4.2 3.4 - 5.5 Chloride 105.0 99.0 - 108.0 Anion Gap 6 <=30 MMOL/L BUN 36(A) 4 - 21 mg/dL Creatinine 1.53(A) 0.60 - 1.30 mg/dL Albumin 3.6 3.5 - 5.0 g/dL Calcium 9.4 8.7 - 10.7 mg/dL Hemoglobin A1C 9.4(A) 4.0 - 6.0 10/22/2021 [facility] Provider LAB BLOOD ORDERABLES Hanna l Result from Last 3 Months or Most Recently Relevant to Health Maintenance Insurance Medicare Medicare Care Teams Chemical Handler Relationship Specialty Start Date End Date Michaela Gutiérrez PA PCP - General Physician Photo Manager 01/21/22
[2025-01-01 19:17] VITALS: BMI 21.4
== END 2024-12-25 13:52 | disposition home or self-care (01) ==
PROVIDERS: PCP Internal Medicine; Visit Provider Dietitian, Registered
DX: E11.9 Type 2 diabetes mellitus without complications (principal)

== ENCOUNTER → 2024-12-25 12:10 | Outpatient (BNVA) | payer MEDICARE, MEDICAID, SELFPAY | PROVIDERS: PCP Internal Medicine; Visit Provider Dietitian, Registered | DX: E11.9 Type 2 diabetes mellitus without complications (principal); Z71.3 Dietary counseling and surveillance | CPT/HCPCS: 97802 ==